=== PATIENT | male | born 1960 | race Caucasian/White ===

== ENCOUNTER → 2024-06-19 09:05 | Outpatient (REF) | payer BC, SELFPAY | LOC: RCS 09:05 | PROVIDERS: ATTENDING PHYSICIAN Nurse Practitioner Adult Health | DX: R00.2 Palpitations (principal) | CPT/HCPCS: 93225; 93226 ==

== ENCOUNTER → 2024-07-30 13:34 | Outpatient (REF) | payer OTHER, SELFPAY | LOC: RCS 13:34 | PROVIDERS: ATTENDING PHYSICIAN Nurse Practitioner Adult Health; FAMILY PHYSICIAN Internal Medicine Cardiovascular Disease | DX: R00.2 Palpitations (principal) | CPT/HCPCS: 93306; 93880 ==

== ENCOUNTER → 2025-02-26 09:51 | Outpatient (REF) | payer OTHER, SELFPAY | LOC: MRI 09:51 | PROVIDERS: ATTENDING PHYSICIAN Student in an Organized Health Care Education/Training Program; FAMILY PHYSICIAN Nurse Practitioner Adult Health | DX: M54.2 Cervicalgia (principal); M47.12 Other spondylosis with myelopathy, cervical region; Z98.1 Arthrodesis status; M48.02 Spinal stenosis, cervical region; M47.812 Spondylosis without myelopathy or radiculopathy, cervical region | CPT/HCPCS: 72141 ==